=== PATIENT | female | born 1975 | race African-American/Black ===

== ENCOUNTER 2018-01-28 11:39 | Emergency (ER) | payer OTHER ==
[2018-01-28 11:46] VITALS: BP 119/71; PULSE 96; TEMP 98; BMI 20.5
[2018-01-28] MEDS ORDERED: ACETAMINOPHEN 1000 MG/100 ML VIAL (NON FORMULARY) IVPB ONE (13:16)
[2018-01-28] MEDS ORDERED: SODIUM CHLORIDE 1,000 ML IV STA (13:16)
--- NOTE | 2018-01-28 13:18 | PDOC ---
History of Present Illness - General Chief Complaint: Pain Stated Complaint: KIDNEY STONE Time Seen by Provider: 01/28/18 13:06 - History of Present Illness Initial Comments: 01/28/18 13:58 The patent is a 42 year old female with no significant PMH who presents for evaluation of flank pain and dysuria. The patient reports a 3 day history of right sided flank pain with associated pain and pressure with urination as well as increased in urinary frequency. The patient noted some blood in her urine 3 days ago which has since resolved. The patient was evaluated by her primary care provider who referred her to the ED for further evaluation. She otherwise denies fevers, chills, SOB, chest pain, nausea, vomiting, or changes with bowel movements. Past History - Past Medical History Allergies/Adverse Reactions: Allergies Allergy/AdvReac Type Severity Reaction Status Date / Time No Known Allergies Allergy Verified 01/28/18 11:44 Home Medications: Ambulatory Orders Cephalexin Monohydrate [Keflex -] 500 mg PO TID #42 capsule 01/28/18 COPD: No - Suicide/Smoking/Psychosocial Hx Smoking History: Never smoked Have you smoked in the past 12 months: No Information on smoking cessation initiated: No Hx Alcohol Use: No Drug/Substance Use Hx: No Substance Use Type: None Review of Systems - Review of Systems Comments:: 01/28/18 14:00 Constitutional: No fevers, chills, fatigue, malaise HEENT: No Rhinorrhea, nasal congestion, visual changes Cardiovascular: No chest pain, syncope, palpitations, lightheadedness Respiratory: No Cough, SOB, Hemoptysis, Gastrointestinal: Lower abdominal pain. No Nausea, Vomiting, Constipation, Diarrhea, Melena Genitourinary: Dysuria, Frequency, Urgency, Flank pain, No Hesitancy, Musculoskeletal: No Myalgia, arthralgia Skin: No rashes, itching, bruising, pallor Neurologic: No Headache, Dizziness, Numbness, Weakness, or Tingling Psychiatric: No Hallucinations. No SI or HI *Physical Exam - Vital Signs Last Vital Signs Temp Pulse Resp BP Pulse Ox 98.0 F 96 H 18 119/71 100 01/28/18 11:44 01/28/18 11:44 01/28/18 11:44 01/28/18 11:44 01/28/18 11:44 - Physical Exam Comments: 01/28/18 14:01 General Appearance: Nourished. No Apparent Distress HEENT: EOMI, SWAPNLI. No Pharyngeal Erythema, Tonsillar Exudate, Tonsillar Erythema Neck: No Cervical Lymphadenopathy Respiratory/Chest: Lungs Clear, Normal Breath Sounds. No Crackles, Rales, Rhonchi, Wheezing Cardiovascular: Regular Rhythm, Regular Rate. No Murmur, Gallops, Rubs Gastrointestinal/Abdominal: Normal Bowel Sounds, Soft. Suprapubic tenderness to palpation. No Guarding, Rebound, Musculoskeletal: Marked R CVA Tenderness. No L CVA Tenderness Extremity: Normal Capillary Refill Integumentary: Normal Color, Dry, Warm Neurologic: Fully Oriented, Alert, Normal Mood/Affect, Normal Response, ED Treatment Course - LABORATORY CBC & Chemistry Diagram: 01/28/18 13:15 01/28/18 13:15 Medical Decision Making - Medical Decision Making 01/28/18 14:09 The patent is a 42 year old female with no significant PMH who presents for evaluation of flank pain and dysuria. Differential includes but is not limited to: Pyelonephritis, UTI, Kidney Stone, infectious, metabolic derangement. Given the patient's physical exam and history, it is likely her symptoms are due to a pyelonephritis or kidney stone. We will obtain a cbc, cmp, UA, urine culture, urine preg, and renal CT to evaluate further. We will treat with iv fluids and iv tylenol in the meantime and continue to monitor and reassess. 01/28/18 16:36 CBC demonstrates an elevated WBC. CMP is unremarkable. UA demonstrates positive leuk esterase, positive nitrites, and elevated wbc. Given the patient' s history and physical exam as well as UA, it is likely the patient's symptoms are due to pyelonephritis. The patient reports improvement in her symptoms here in the ED. We are comfortable discharging the patient home at this time with primary care provider follow up on outpatient antibiotics. We discussed the results, plan and strict return precautions with the patient who voiced understanding and is agreeable with the plan. *DC/Admit/Observation/Transfer Diagnosis at time of Disposition: Pyelonephritis - Discharge Dispostion Disposition: HOME Condition at time of disposition: Good Admit: No - Prescriptions Prescriptions: Cephalexin Monohydrate [Keflex -] 500 mg PO TID #42 capsule - Referrals Referrals: Willie Anderson MD [Primary Care Provider] - - Patient Instructions Printed Discharge Instructions: DI for Kidney Infection Additional Instructions: Please return to the ER if you experience concerning or worsening symptoms including worsening fevers, pain, or vomiting. Your lab results and ct scan show that you have a kidney infection. We have sent a prescription to your pharmacy for antibiotics that you should take three times a day for 14 days. Please call to schedule a follow up appointment with your primary care provider within 2-3 days to discuss your ER visit and further management of your symptoms. - Post Discharge Activity Forms/Work/School Notes: Back to Work
[2018-01-28] MEDS ORDERED: ACETAMINOPHEN INJECTION 100 ML IVPB ONE (13:30)
[2018-01-28 13:56] LABS: HEMATOCRIT 27.3 % (32.4-45.2); HEMOGLOBIN 8.4 GM/dL (10.7-15.3); MCHC 30.9 g/dl (32.0-36.0); MEAN CELL VOLUME 61.7 fl (80-96); MEAN PLT VOLUME 8.5 fl (7.5-11.1); PLATELET COUNT 362 K/MM3 (134-434); RBC 4.42 M/mm3 (3.60-5.2); RDW 20.1 % (11.6-15.6); WHITE BLOOD COUNT 11.9 K/mm3 (4.0-10.0)
[2018-01-28 13:57] LABS: MCH 19.1 pg (25.7-33.7)
[2018-01-28 14:08] LABS: HCG,QUALITATIVE URINE NEGATIVE; URINE APPEARANCE TURBID; URINE BILIRUBIN NEGATIVE (<2.0 mg/dL); URINE BLOOD 2+ (NEGATIVE); URINE COLOR YELLOW; URINE GLUCOSE (UA) NEGATIVE (NEGATIVE); URINE KETONE 1+ (NEGATIVE); URINE LEUK ESTERASE 3+ (NEGATIVE); URINE NITRITE POSITIVE (NEGATIVE); URINE PROTEIN 2+ (NEGATIVE); URINE UROBILINOGEN NEGATIVE mg/dL (0.2-1.0)
[2018-01-28 14:09] LABS: ALBUMIN 3.9 g/dl (3.4-5.0); ANION GAP 11 (8-16); BLOOD UREA NITROGEN 7 mg/dL (7-18); CALCIUM 9.6 mg/dL (8.5-10.1); CHLORIDE 106 mmol/L (98-107); CO2 26 mmol/L (21-32); GLUCOSE,RANDOM 86 mg/dL (74-106); POTASSIUM 3.7 mmol/L (3.5-5.1); SODIUM 143 mmol/L (136-145)
[2018-01-28 14:12] LABS: ALK PHOS 76 U/L (45-117); BILIRUBIN,TOTAL 0.5 mg/dL (0.2-1.0); CREATININE 0.7 mg/dL (0.55-1.02); SGOT/AST 12 U/L (15-37); SGPT/ALT 10 U/L (12-78); TOT PROT 7.6 g/dl (6.4-8.2)
[2018-01-28 14:18] LABS: URINE BACTERIA FEW /hpf (NONE SEEN)
--- NOTE | 2018-01-28 15:00 | PDOC ---
Attending Attestation - HPI HPI: The patient is a 42 year old female with no significant past medical history who presents to the emergency department complaining of right side flank pain and dysuria for 3 days. The patient reports pain and pressure with urination and endorses urinary frequency. The patient reports mild hematuria on Sunday, but says it cleared up. The patient was referred to emergency department for further evaluation. The patient denies chest pain, shortness of breath, headache , and dizziness. Denies fevers, chills, nausea, vomiting, diarrhea, and constipation. Allergies: NKA Social history: No reported cigarette, alcohol, or drug use. - Physicial Exam PE: Exam Vitals: Triage Vital signs reviewed General Appearance: no acute distress, well nourished well developed, Head: Atraumatic, normocephalic Neck: Supple;No Nuchal rigidity Chest Wall: Nontender Cardiac: Regular rate and rhythm, no murmurs, no rubs, no gallops, Lungs: Clear to auscultation bilateral, good air movement bilaterally, Abdomen: Soft, nondistended, normal bowel sounds, nontender to palpation Musculoskeletal: +Mild tenderness to right CVA Rectal: Exam deferred Extremities: Full range of motion to all extremities, no cyanosis, clubbing, or edema Skin: Warm and dry, no rashes or lesions, no petechiae Psych: normal mood, normal affect - Medical Decision Making The patient is a 42 year old female with no significant past medical history who presents to the emergency department complaining of right side flank pain and dysuria for 3 days. Plan: -cbc -cmp -UA -urine culture -urine preg -renal CT <Patrica Davis - Last Filed: 01/28/18 17:19> - Resident Resident Name: Murtaza Sutton - ED Attending Attestation I have performed the following: I have examined & evaluated the patient, The case was reviewed & discussed with the resident, I agree w/resident's findings & plan, Exceptions are as noted - Medical Decision Making Well-appearing pain improved positive UTI given flank tenderness diagnosis of pyelonephritis Patient tolerating fluids by mouth did not vomiting well-appearing would like to try trial of antibiotics by mouth at home Patient return to ED for any fever severe worsening pain vomiting or for any concerns. She will otherwise follow-up with her primary care provider this week. Findings, the need for follow-up and strict return instructions discussed with patient. <Son Bennett - Last Filed: 01/28/18 17:28> Attestations - Attestations Documentation prepared by Patrica Davis, acting as medical billing manager for Son Bennett MD. <Patrica Davis - Last Filed: 01/28/18 17:19>
[2018-01-28 15:30] LABS: ANISOCYTOSIS 2+; PLATELET ESTIMATE NORMAL; TARGET CELLS 3+
[2018-01-28] MEDS ORDERED: CEPHALEXIN MONOHYDRATE 500 MG CAPSULE (UD) PO ONE (16:26)
[2018-01-28] MEDS ORDERED: CEPHALEXIN MONOHYDRATE 250 MG CAPSULE (FP) ONE (16:32)
--- NOTE | 2018-01-31 07:38 | PDOC ---
Patient Follow-up (Call Back) - Post ED Follow - Up Condition at time of discharge: Good Disposition at time of original discharge: HOME Reason for Call Back: Abnwl. Microbiology (Urine culture grew e.coli sensitive to 1st generation cephlosporins. Pt. is approriately covered on Keflex. No further action needed at this time.)
== END 2018-01-28 17:33 | disposition home or self-care (01) ==
LOC: JER 11:39
PROC: 3E033NZ Introduction of Analgesics, Hypnotics, Sedatives into Peripheral Vein, Percutaneous Approach (ICD-10-PCS; principal; 2018-01-28)
DX: N12 Tubulo-interstitial nephritis, not specified as acute or chronic (principal)
CPT/HCPCS: 36415; 74176; 80053; 81003; 81015; 84703; 85025; 87086; 87186; 99284-25; J0131; J7030